=== PATIENT | male | born 1960 | race Caucasian/White ===

== ENCOUNTER 2020-04-07 19:48 | Emergency (ER) | payer OTHER ==
[~2020-04-07] VITALS: Ht 177.8 cm; Wt 96.4 kg
[~2020-04-07 19:48] MED LIST: ASPIRIN E.C. 8181 MG PO; CARDI-OMEGA1000 MG; IRON324 M1 PO; LIPITOR 80MG80 MG PO; METOPROLOL25 MG PO; ZOCOR80 MG PO
[2020-04-07 19:50] VITALS: TEMP 98.7
[2020-04-07 20:36] LABS: HEMOGLOBIN 10.9 g/dl (13.5-18.0); MEAN CELL VOLUME 87 fl (80.0-100.0); MEAN CORPUSCULAR HEMOGLOBIN 27 pg (27.0-31.0); MEAN CORPUSCULAR HGB CONC 31 g/dl (33.0-37.0); MEAN PLATELET VOLUME 11.5 fl (7.4-10.4); PLATELET COUNT 133 K/mm3 (130-400); PROTHROMBIN TIME 11.6 SECONDS (9.7-12.8); RED BLOOD COUNT 4.05 M/mm3 (4.20-5.60); REDCELL DISTRIBUTION WIDTH-CV 18.2 % (11.5-14.5)
[2020-04-07 20:43] LABS: ALBUMIN 3.6 gm/dL (3.5-5.0); BILIRUBIN,TOTAL 0.4 mg/dL (0.0-1.0); CALCIUM 8.5 mg/dL (8.4-10.2); CREATININE, serum 0.91 (0.66-1.25); HEMATOCRIT 35.2 % (42.0-52.0); POTASSIUM 3.6 mmol/L (3.4-5.0); TOTAL PROTEIN 6.7 gm/dL (6.4-8.2)
[2020-04-07] MEDS ORDERED: PRINIVIL20 MG PO (21:23)
[2020-04-07 21:35] LABS: BAND 1 % (0-10); LYMPHOCYTE 11 % (20.0-51.0); METAMYELOCYTE 1 % (0-0); MYELOCYTE 1 % (0-0); NEUTROPHILS 81 % (42.0-75.2); PLATELET ESTIMATE NORMAL (NORMAL)
[2020-04-07 21:52] VITALS: BP 126/80; PULSE 68
== END 2020-04-07 21:52 | disposition short-term general hospital (02) ==
LOC: COL.ER 19:48
PROVIDERS: Emergency Medicine
DX: S22.061A Stable burst fracture of T7-T8 vertebra, initial encounter for closed fracture (principal); S22.081A Stable burst fracture of T11-T12 vertebra, initial encounter for closed fracture; S22.32XA Fracture of one rib, left side, initial encounter for closed fracture; E78.00 Pure hypercholesterolemia, unspecified; I10 Essential (primary) hypertension; J91.8 Pleural effusion in other conditions classified elsewhere; R40.2410 Glasgow coma scale score 13-15, unspecified time; W11.XXXA Fall on and from ladder, initial encounter; Y92.009 Unspecified place in unspecified non-institutional (private) residence as the place of occurrence of the external cause
CPT/HCPCS: J2405; J3010; J7030; Q9967

== ENCOUNTER → 2020-08-04 | Outpatient (RCR) | payer OTHER ==
[~2020-08-04] MED LIST changes: +PRINIVIL20 MG PO
== END | disposition home or self-care (01) ==
LOC: WSPT
DX: S22.31XS Fracture of one rib, right side, sequela (principal); S22.000S Wedge compression fracture of unspecified thoracic vertebra, sequela; S22.001 Stable burst fracture of unspecified thoracic vertebra; Z98.1 Arthrodesis status

== ENCOUNTER 2020-08-27 08:00 | Outpatient (RCR) | payer OTHER | END 2020-08-28 09:00 | disposition home or self-care (01) | LOC: WSPT 08:00 | DX: S22.001A Stable burst fracture of unspecified thoracic vertebra, initial encounter for closed fracture (principal); S22.000A Wedge compression fracture of unspecified thoracic vertebra, initial encounter for closed fracture; S22.31XA Fracture of one rib, right side, initial encounter for closed fracture; Z98.1 Arthrodesis status ==